=== PATIENT | male | born 1990 | race African-American/Black ===

== ENCOUNTER 2019-02-05 16:13 | Emergency (ER) | payer MEDICAID ==
[~2019-02-05] VITALS: Ht 177.8 cm; Wt 110.0 kg
[2019-02-05] MEDS ORDERED: SODIUM CHLORIDE 0.9% 1,000 ML IV ONE (16:45)
[2019-02-05] MEDS ORDERED: AMPICILLIN SOD/SULBACTAM NA 3 G in SODIUM CHLORIDE 0.9% 100 ML IV SCH (16:45)
[2019-02-05] MEDS ORDERED: ONDANSETRON HCL 4MG/2ML INJ IV ONE (17:30)
[2019-02-05] MEDS ORDERED: MORPHINE SULFATE 4 MG/ML CPJ (NOT FOR IM USE) IV ONE (17:30)
[2019-02-05 18:01] LABS: BASOPHILS % 0.5 % (0.0-2.0); EOSINOPHILS % 2.9 % (0.0-5.0); HEMATOCRIT. 45.2 % (42.0-52.0); HEMOGLOBIN. 15.2 g/dL (14.0-18.0); MEAN PLATELET VOLUME 8.6 fl (7.4-10.4); MONOCYTES % 8.8 % (2.0-8.0); NEUTROPHILS % 67.8 % (40.0-76.0); PLATELET 415 x1000/uL (130-400); RED BLOOD CELL COUNT 5.08 mill/uL (4.7-6.1); RED CELL DISTRIBUTION WIDTH 12.9 % (11.6-14.6)
[2019-02-05 18:07] LABS: CHLORIDE 103 mEq/L (98-107)
[2019-02-05] MEDS ORDERED: HYDROMORPHONE HCL/PF 2MG/ML CPJ IV ONE (19:45)
[2019-02-05] MEDS ORDERED: IOHEXOL-300 100 ML BOTTLE ONE (22:02)
[2019-02-06] MEDS ORDERED: FENTANYL CITRATE/PF 50MCG/ML 2ML VIAL IV ONE (01:45)
[2019-02-06] MEDS ORDERED: KETOROLAC 15MG/ML VIAL IV ONE (01:45)
[2019-02-06 07:59] VITALS: BP 141/93
== END 2019-02-06 08:09 | disposition short-term general hospital (02) ==
LOC: ER 16:13
DX: T84.69XA Infection and inflammatory reaction due to internal fixation device of other site, initial encounter (principal); K12.2 Cellulitis and abscess of mouth; Z87.828 Personal history of other (healed) physical injury and trauma; Y83.8 Other surgical procedures as the cause of abnormal reaction of the patient, or of later complication, without mention of misadventure at the time of the procedure; Y92.018 Other place in single-family (private) house as the place of occurrence of the external cause
CPT/HCPCS: 36415; 70487; 80053; 85025; 96365; 96375; 99285; J0295; J1170; J1885; J2270; J2405; J3010; J7030; J7050; Q9967